=== PATIENT | female | born 1960 | race Caucasian/White ===

== ENCOUNTER → 2016-11-09 | Outpatient (CLI) | payer BC ==
[~2016-11-09] MED LIST: AMBIEN10 MG PO; CEPHALEXIN500 M1 PO; CLEOCIN HC150 MG/CAP PO; INDERAL 10MG10 MG PO; LEVAQUIN 5500 MG/TA1 PO; LORTAB 5/500 501 TAB PO; NAPROSYN 2250 MG/TAB PO; NAPROSYN500 MG PO; NO HOME MEDICATIONS; NORCO 325 MG-51 TAB PO; PERCOCET 325 MG1 TA2 PO; PREMARIN .3MG0.3 MG PO; ZANTAC 150MG T150 MG PO
== END ==
LOC: MC.RAD 09:40
DX: Z12.31 Encounter for screening mammogram for malignant neoplasm of breast (principal)

== ENCOUNTER → 2017-05-21 | Outpatient (CLI) | payer BC | LOC: MHCPAIN 10:32 | DX: G89.29 Other chronic pain (principal); M47.817 Spondylosis without myelopathy or radiculopathy, lumbosacral region; M53.3 Sacrococcygeal disorders, not elsewhere classified; M25.559 Pain in unspecified hip | CPT/HCPCS: G0463 ==

== ENCOUNTER → 2017-05-21 | Outpatient (CLI) | payer BC | LOC: COL.RAD 11:24 | DX: M16.12 Unilateral primary osteoarthritis, left hip (principal) ==

== ENCOUNTER → 2017-05-24 | Outpatient (CLI) | payer BC ==
[~2017-05-24] MED LIST changes: +DULCOLAX STOOL100 MG PO; +FLOMAX 0.40.4 MG/CAP PO; +ZOFRAN8 MG PO
== END ==
LOC: MHCPAIN 08:54
DX: M16.12 Unilateral primary osteoarthritis, left hip (principal)
CPT/HCPCS: J1040; Q9967

== ENCOUNTER → 2017-05-30 | Outpatient (CLI) | payer BC ==
[~2017-05-30] MED LIST changes: -DULCOLAX STOOL100 MG PO; -FLOMAX 0.40.4 MG/CAP PO; -ZOFRAN8 MG PO
== END ==
LOC: MHCPAIN 14:37
DX: G89.29 Other chronic pain (principal); M47.817 Spondylosis without myelopathy or radiculopathy, lumbosacral region; M53.3 Sacrococcygeal disorders, not elsewhere classified; M16.12 Unilateral primary osteoarthritis, left hip
CPT/HCPCS: G0463

== ENCOUNTER → 2018-03-12 | Outpatient (CLI) | payer BC | LOC: MC.RAD 07:00 | DX: Z12.31 Encounter for screening mammogram for malignant neoplasm of breast (principal) ==

== ENCOUNTER 2018-12-27 01:14 | Observation (INO) | payer BC ==
[2018-12-27] VITALS (11 sets, daily range): BP systolic 121–152; BP diastolic 53–84; PULSE 55–93; TEMP 97.4–98.8
[~2018-12-27] VITALS: Ht 157.5 cm; Wt 97.4 kg
[2018-12-27 01:56] LABS: COLLECTION METHOD CLEAN CATCH
[2018-12-27 01:58] LABS: BASO # 0.1 (0.0-0.2); BASO % 0.4 % (0.0-2.0); EOS # 0.1 (0.0-0.7); EOS % 0.5 % (0-4.0); GRAN # 8.6 (1.4-6.5); GRAN % 77.5 % (42.2-75.2); HEMATOCRIT 45.6 % (37.0-47.0); HEMOGLOBIN 14.4 g/dl (12.5-16.0); LYMPH # 1.6 (1.2-3.4); LYMPH % 14.3 % (20.0-51.0); MEAN CELL VOLUME 89 fl (80.0-100.0); MEAN CORPUSCULAR HEMOGLOBIN 28 pg (27.0-31.0); MEAN CORPUSCULAR HGB CONC 32 g/dl (33.0-37.0); MEAN PLATELET VOLUME 9.9 fl (7.4-10.4); MONO # 0.8 (0.1-0.6); MONO % 6.9 % (1.7-9.3); PLATELET COUNT 288 K/mm3 (130-400); RED BLOOD COUNT 5.11 M/mm3 (4.10-5.30); REDCELL DISTRIBUTION WIDTH-CV 13.4 % (11.5-14.5)
[2018-12-27] MEDS ORDERED: PERCOCET 325 MG1 TA2 PO (02:00)
[2018-12-27] MEDS ORDERED: FLOMAX 0.40.4 MG/CAP PO (02:01)
[2018-12-27] MEDS ORDERED: DULCOLAX STOOL100 MG PO (02:01)
[2018-12-27] MEDS ORDERED: ZOFRAN8 MG PO (02:01)
[2018-12-27 02:09] LABS: ALBUMIN 4.4 gm/dL (3.5-5.0); BILIRUBIN,TOTAL 0.5 mg/dL (0.0-1.0); CALCIUM 8.9 mg/dL (8.4-10.2); CREATININE, serum 1.12 (0.52-1.25); POTASSIUM 4.1 mmol/L (3.4-5.0); TOTAL PROTEIN 7.8 gm/dL (6.4-8.2)
[2018-12-27 02:13] LABS: MUCOUS Present /lpf; PH 5 (5-8); SQUAMOUS EPITHELIAL 0-2 /hpf; URINE APPEARANCE Hazy; URINE BACTERIA None Seen /hpf; URINE BILIRUBIN Negative (NEGATIVE); URINE BLOOD 3+ (NEGATIVE); URINE COLOR Yellow; URINE GLUCOSE Negative (NEGATIVE); URINE KETONE 1+ (NEGATIVE); URINE LEUKOCYTE ESTERASE 1+ (NEGATIVE); URINE NITRATE Negative (NEGATIVE); URINE PROTEIN(semi-quant) 1+ (NEGATIVE); URINE RBC >50 /hpf; URINE UROBILINOGEN Negative (NEGATIVE)
--- NOTE | 2018-12-27 05:16 | NUR ---
PT ARRIVED FROM ER VIA WHEELCHAIR WITH SPOUSE BY HER SIDE. A/O X4, USED BATHROOM AND URINATED 100ML OF CLEAR YELLOW URINE, STRAINED URINE NO STONES SEEN. PT IN BED WITH HOB AT 30 DEGREE ANGLE. PT AWARE THAT SHE IS NPO AND POSSIBLE SURGERY IN AM. NO NEEDS AT THIS TIME, CALL LIGHT WITHIN REACH.
--- NOTE | 2018-12-27 10:03 | NUR ---
AV[employer] student met with the patient and her , Darian, to discuss discharge planning. The patient lives in [place] with her . The patient reports independence with ADLs and has no DME. The patients PCP is LANETTE Leal, and gets her medications from [facility] in [place]. The patient reports no difficulties obtaining her medication. The patient does not have DPOA-HC in EMR and is not interested in completing one at this time. The patient plans to return home with her upon discharge. No additional needs at this time.
--- NOTE | 2018-12-27 12:11 | NUR ---
Initial visit; Patient thanked Transfer Car Operator for looking in on her, offering God's blessings and keeping her in Transfer Car Operator's prayers.
--- NOTE | 2018-12-27 12:15 | NUR ---
Patient is going to surgery at this time. Consent signed and on the chart. No other changes at this time.
--- NOTE | 2018-12-27 14:30 | NUR ---
Patient is back from surgery. She is nervous about being discharged home. She had problems in the past with ureteral stents. Her is at bedside. Explained that she does not have to garnica to be discharged this afternoon. She stated so far she is doing ok. No other changes at this time. Call light within reach.
--- NOTE | 2018-12-27 17:45 | NUR ---
Patient is being discharged home. Discharge instructions discussed with patient. INT discontinued. She already has a followed up appointment scheduled. She also has pain medications at home. Copies of discharge instructions sent with patient. All belongings packed up and sent with patient.
== END 2018-12-27 18:00 | disposition home or self-care (01) ==
LOC: COL.ER 01:14 → SURG 04:10
PROVIDERS: Emergency Medicine; ADMIT Urology
DX: N20.1 Calculus of ureter (principal); Z90.710 Acquired absence of both cervix and uterus; Z96.643 Presence of artificial hip joint, bilateral
CPT/HCPCS: A4216; C1769; C2617; G0378; J0690; J0696; J1885; J2405; J2704; J3010; J7030; Q9967

== ENCOUNTER 2019-01-01 11:38 | Day surgery (SDC) | payer BC ==
[~2019-01-01] VITALS: Ht 157.5 cm; Wt 87.9 kg
[~2019-01-01 11:38] MED LIST changes: +DULCOLAX STOOL100 MG PO; +FLOMAX 0.40.4 MG/CAP PO; +ZOFRAN8 MG PO
--- NOTE | 2019-01-01 11:45 | NUR ---
Patient admitted to room 1 ambulatory and oriented to room. Call light in reach and spouse at side.
[2019-01-01 12:07] VITALS: BP 153/88; PULSE 90; TEMP 98.4
--- NOTE | 2019-01-01 12:51 | NUR ---
Initial visit; Patient thanked Print Production Coordinator for offering encouragement and prayer prior to her 'Procedure.'
--- NOTE | 2019-01-01 12:53 | NUR ---
Dr. Calixto in room and proceeding with stent removal.
--- NOTE | 2019-01-01 12:55 | NUR ---
Ambulatory to the bathroom and given cleansing wipes. Voids and returns to room. Dressing self. Awaits order for discharge. Denies pain. States that she is feeling good.
--- NOTE | 2019-01-01 13:45 | NUR ---
Patient given dismissal instructions and dismissed to home ambulatory accompanied by spouse.
== END 2019-01-01 13:45 | disposition home or self-care (01) ==
LOC: SDCO 11:38
DX: N20.0 Calculus of kidney (principal); Z96.643 Presence of artificial hip joint, bilateral; Z90.710 Acquired absence of both cervix and uterus; Z87.442 Personal history of urinary calculi

== ENCOUNTER → 2019-03-26 | Outpatient (CLI) | payer BC | LOC: MC.RAD 14:45 | DX: Z12.31 Encounter for screening mammogram for malignant neoplasm of breast (principal) ==

== ENCOUNTER → 2020-04-02 | Outpatient (CLI) | payer BC | LOC: MC.RAD 14:53 | DX: Z12.31 Encounter for screening mammogram for malignant neoplasm of breast (principal) ==

== ENCOUNTER → 2021-04-04 | Outpatient (CLI) | payer BC | LOC: MC.RAD 13:00 | DX: Z12.31 Encounter for screening mammogram for malignant neoplasm of breast (principal) ==

== ENCOUNTER → 2022-04-05 | Outpatient (CLI) | payer BC | LOC: MC.RAD 14:58 | DX: Z12.31 Encounter for screening mammogram for malignant neoplasm of breast (principal) ==